=== PATIENT | female | born 1970 | race Caucasian/White ===

== ENCOUNTER 2017-11-15 18:56 | Emergency (ER) | payer BC ==
[~2017-11-15] VITALS: Ht 175.3 cm; Wt 82.6 kg
[~2017-11-15 18:56] MED LIST: ANTIVERT25 MG PO; BENTYL 20 MG TA20 M1 PO; BUTALB-APAP-CA1 EACH PO; CARAFATE 1 GM TA1 G1 PO; CIPROFLOXACIN500 M1 PO; CLEOCIN HCL150 MG PO; CLONAZEPAM; DARVOCET-N 1001 EAC1 PO; DIFLUCAN150 MG PO; DIPHENHIST50 MG PO; LEVOTHYROXIN0.125 M1 PO; LEXAPRO 10 MG T10 M2; LEXAPRO20 MG PO; MACROBID 100 M100 M1 PO; NEURONTIN600 MG PO; NEXIUM; NEXIUM40 MG PO; OMEPRAZOLE20 M2 PO; PEPCID20 MG PO; PREDNISONE 10 M10 MG PO; PROTONIX40 M2; PYRIDIUM200 MG PO; ROCALTROL0.5 MCG PO; TUMS PO; URICALM; VICODIN 5-5001 EACH PO; VITAMIN D 5050000 I1; VITAMIN D1000 UNI1 PO; XANAX 0.5 MG0.5 MG PO; ZOFRAN ODT4 MG PO; ZOLOFT25 MG PO; ZPAK PO
[2017-11-15 19:18] LABS: ABSOLUTE BASOPHILS 0.1 thou/uL (0.0-0.2); ABSOLUTE EOSINOPHILS 0.1 thou/uL (0.0-0.7); ABSOLUTE LYMPHOCYTES 1.4 thou/uL (0.8-5.3); ABSOLUTE MONOCYTES 0.5 thou/uL (0.0-1.2); ABSOLUTE NEUTROPHILS 3.8 thou/uL (1.6-8.1); BASOPHILS 0.9 %; HEMATOCRIT 39.7 % (37.0-47.0); HEMOGLOBIN 13.1 gm/dL (12.0-15.0); LYMPHOCYTES 24.6 %; MCH 28.3 pg (26.0-34.0); MCHC 32.9 g/dL (28.0-37.0); MONOCYTES 8.1 %; MPV 7.8 fl. (7.2-11.1); NUCLEATED RBCS 0 /100WBC; PLATELET COUNT* 325 thou/uL (150-400); POLYS 64.4 %; RBC 4.62 mil/uL (4.20-5.00); RDW-CV 15.5 % (10.5-14.5); WBC 5.9 thou/uL (4.0-11.0)
[2017-11-15 19:46] LABS: ANION GAP 4 mmol/L (7-16); BUN 11 mg/dL (7-18); CALCIUM 8.1 mg/dL (8.5-10.1); CHLORIDE 104 mmol/L (98-107); CO2 30 mmol/L (21-32); CREATININE 0.8 mg/dL (0.6-1.3); GLUCOSE 93 mg/dL (70-99); POTASSIUM 3.8 mmol/L (3.5-5.1); SODIUM 138 mmol/L (136-145)
[2017-11-15] MEDS ORDERED: ZOFRAN ODT4 MG PO (19:46)
[2017-11-15] MEDS ORDERED: CARAFATE 1 GM TA1 G1 PO (19:46)
[2017-11-15 19:57] LABS: ALBUMIN 3.3 g/dL (3.4-5.0); ALKALINE PHOSPHATASE 107 U/L (46-116); LIPASE 139 U/L (73-393); NT-PRO BRAIN NAT PEPTIDE 30 pg/mL (<300); SGOT 11 U/L (15-37); SGPT 17 U/L (30-65); TOTAL BILIRUBIN 0.1 mg/dL (<0.1-1.0); TOTAL PROTEIN 7.7 g/dL (6.4-8.2); TROPONIN-I LEVEL <0.06 ng/mL (<0.06)
[2017-11-15 20:50] VITALS: BP 113/65
--- NOTE | 2017-11-16 10:50 | EKG ---
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 : 1970 Requested By: Juan Adam Order Number: [id number] MD: Robbin Romero Measurements Intervals [place]essel Rate: 84 P: -6 NC: 153 QRS: 60 QRSD: 87 T: 48 QT: 350 QTc: 414 Interpretive Statements Sinus rhythm Baseline wander in lead(s) I,II,III,aVR,aVF Compared to ECG 06/16/2016 19:03:36 No significant changes Electronically Signed On 11-16-2017 10:50:08 CDT by Robbin Romero [email or web address] <ELECTRONICALLY SIGNED> By: Robbin Romero MD, [facility] 11/16/17 1050 190 00 Robbin Romero MD, [facility] /EPI
== END 2017-11-15 20:50 | disposition home or self-care (01) ==
LOC: M.ERS 18:56
PROVIDERS: Emergency Medicine Emergency Medical Services
DX: R10.13 Epigastric pain (principal); R07.9 Chest pain, unspecified; K21.9 Gastro-esophageal reflux disease without esophagitis; E89.0 Postprocedural hypothyroidism; G43.909 Migraine, unspecified, not intractable, without status migrainosus; F17.210 Nicotine dependence, cigarettes, uncomplicated; Z88.0 Allergy status to penicillin; Z88.2 Allergy status to sulfonamides

== ENCOUNTER 2018-03-23 19:24 | Emergency (ER) | payer OTHER ==
[~2018-03-23] VITALS: Ht 175.3 cm; Wt 64.9 kg
[2018-03-23 20:03] LABS: INFLUENZA A ANTIGEN None Detected (None Detect); INFLUENZA B ANTIGEN None Detected (None Detect)
[2018-03-23] MEDS ORDERED: PREDNISONE50 MG PO (21:08)
[2018-03-23 21:14] VITALS: BP 124/78
== END 2018-03-23 21:14 | disposition home or self-care (01) ==
LOC: M.ERS 19:24
PROVIDERS: Emergency Medicine
DX: J40 Bronchitis, not specified as acute or chronic (principal); K21.9 Gastro-esophageal reflux disease without esophagitis; G35 Multiple sclerosis; E89.0 Postprocedural hypothyroidism; G43.909 Migraine, unspecified, not intractable, without status migrainosus; F17.210 Nicotine dependence, cigarettes, uncomplicated; Z88.0 Allergy status to penicillin; Z88.2 Allergy status to sulfonamides; Z85.850 Personal history of malignant neoplasm of thyroid

== ENCOUNTER → 2020-04-05 | Outpatient (CLI) | payer MEDICARE, OTHER ==
[~2020-04-05] MED LIST changes: +PREDNISONE50 MG PO
== END ==
LOC: M.RAD 11:58
PROVIDERS: ATTEND Nurse Practitioner Family
DX: Z12.31 Encounter for screening mammogram for malignant neoplasm of breast (principal)

== ENCOUNTER → 2020-07-28 | Outpatient (CLI) | payer OTHER | LOC: M.CT 11:57 | PROVIDERS: ATTEND Nurse Practitioner Family | DX: R31.0 Gross hematuria (principal); R91.8 Other nonspecific abnormal finding of lung field ==

== ENCOUNTER 2020-08-05 13:19 | Observation (INO) | payer OTHER ==
[~2020-08-05] VITALS: Ht 175.3 cm; Wt 85.7 kg
[~2020-08-05 13:19] MED LIST changes: -LEVOTHYROXIN0.125 M1 PO; +SYNTHROID112 MC1 PO
[2020-08-05 13:43] LABS: ABSOLUTE BASOPHILS 0.1 thou/uL (0.0-0.2); ABSOLUTE EOSINOPHILS 0.1 thou/uL (0.0-0.7); ABSOLUTE LYMPHOCYTES 1.7 thou/uL (0.8-5.3); ABSOLUTE MONOCYTES 0.6 thou/uL (0.0-1.2); BASOPHILS 1.3 %; EOSINOPHILS 2.3 %; HEMATOCRIT 39.9 % (37.0-47.0); HEMOGLOBIN 13.3 gm/dL (12.0-15.0); LYMPHOCYTES 25.7 %; MCH 29.9 pg (26.0-34.0); MCHC 33.3 g/dL (28.0-37.0); MCV 89.7 fL (80.0-100.0); MONOCYTES 9.3 %; MPV 7.8 fl. (7.2-11.1); NUCLEATED RBCS 0 /100WBC; PLATELET COUNT* 305 thou/uL (150-400); POLYS 61.4 %; RBC 4.45 mil/uL (4.20-5.00); RDW-CV 13.9 % (10.5-14.5); WBC 6.5 thou/uL (4.0-11.0)
[2020-08-05 13:55] LABS: CALCIUM 8.6 mg/dL (8.5-10.1); CREATININE 0.8 mg/dL (0.6-1.3)
[2020-08-05 13:56] LABS: APTT 26.8 Seconds (25.0-31.3); INR 0.9; PROTIME 9.8 Seconds (9.20-11.50)
[2020-08-05] MEDS ORDERED: PEPCID AC20 MG PO (13:57)
[2020-08-05 14:04] LABS: ALBUMIN 3.4 g/dL (3.4-5.0); MAGNESIUM 2.1 mg/dL (1.8-2.4); TOTAL BILIRUBIN 0.2 mg/dL (<0.1-1.0); TOTAL PROTEIN 7.5 g/dL (6.4-8.2)
[2020-08-05 18:00] VITALS: BP 119/78
[2020-08-05 18:26] VITALS: BP 124/71
[2020-08-05 20:02] VITALS: BP 134/85
[2020-08-05 23:59] VITALS: BP 110/68
[2020-08-06 04:02] VITALS: BP 103/59
[2020-08-06 09:22] VITALS: BP 115/64
--- NOTE | 2020-08-06 09:50 | EKG ---
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 : 1970 Requested By: Juan Adam Order Number: [id number] MD: Robbin Romero Measurements Intervals [place] Rate: 102 P: 60 SD: 158 QRS: 60 QRSD: 87 T: 49 QT: 320 QTc: 417 Interpretive Statements Sinus tachycardia Minimal ST depression, anterolateral leads Baseline wander in lead(s) V1,V4,V5,V6 Compared to ECG 11/15/2017 19:01:01 ST (T wave) deviation now present Sinus rhythm no longer present Electronically Signed On 08-06-2020 9:49:46 CDT by Robbin Romero [email or web address] <ELECTRONICALLY SIGNED> By: Robbin Romero MD, [facility] 08/06/20 0949 1326 1326 Robbin Romero MD, [facility] /EPI
--- NOTE | 2020-08-06 12:29 | 2DMMODE ---
[place] [address] 2 D/M-MODE ECHOCARDIOGRAM Name: EDITH GOMEZ Room: [address] Marcela#: [id number] Admission: 08/05/20 Attend Phys: Zuleyka Jean Baptiste, Discharge: Date of : 70 Date of Service: 08/06/20 1229 Report #: [id number] THIS REPORT FOR: cc: Stephanie Wang Tami FNP Blick, David R. MD [facility] ~ APPROVED REPORT Study performed: 08/06/2020 10:07:30 EXAM: Comprehensive 2D, Doppler, and color-flow Echocardiogram Patient Location: In-Patient Room #: 218 Status: routine BSA: 2.02 HR: 77 bpm BP: 115/64 mmHg Rhythm: NSR Other Information Study Quality: Excellent Indications Chest Pain 2D Dimensions IVSd: 9.84 (7-11mm) LVOT Diam: 20.97 (18-24mm) LVDd: 43.46 mm PWd: 7.41 (7-11mm) Ascending Ao: 32.66 (22-36mm) LVDs: 26.36 (25-40mm) Aortic Root: 31.16 mm Volumes Left Atrial Volume (Systole) LA ESV Index: 27.60 mL/m2 Aortic Valve AoV Peak Alok.: 1.24 m/s AO Peak Gr.: 6.14 mmHg LVOT Max P.02 mmHg AO Mean Gr.: 3.10 mmHg LVOT Mean P.81 mmHg LVOT Max V: 1.00 m/s AO V2 VTI: 22.84 cm LVOT Mean V: 0.61 m/s PRIETO (VTI): 2.87 cm2 LVOT V1 VTI: 19.01 [place] [address] 2 D/M-MODE ECHOCARDIOGRAM Name: EDITH GOMEZ Room: [address]#: [id number] Admission: 08/05/20 Attend Phys: Zuleyka Jean Baptiste, Discharge: Date of : 70 Date of Service: 08/06/20 1229 Report #: [id number] Mitral Valve E/A Ratio: 1.07 MV Decel. Time: 188.55 ms MV E Max Alok.: 0.69 m/s MV PHT: 54.68 ms MVA (PHT): 4.02 cm2 TDI E/Lateral E': 4.93 E/Medial E': 5.31 Medial E' Alok.: 0.13 m/s Lateral E' Alok.: 0.14 m/s Pulmonary Valve PV Peak Alok.: 1.01 m/s PV Peak Gr.: 4.12 mmHg Tricuspid Valve RAP Estimate: 5.00 mmHg TR Peak Gr.: 20.41 mmHg RVSP: 25.00 mmHg PA Pressure: 25.00 mmHg Left Ventricle The left ventricle is normal size. There is normal LV segmental wall motion. There is normal left ventricular wall thickness. Left ventricular systolic function is normal. The left ventricular ejection fraction is within the normal range. LVEF is 55-60%. The left ventricular diastolic function is normal. Right Ventricle The right ventricle is normal size. The right ventricular systolic function is normal. Atria The left atrium size is normal. The right atrium size is normal. Aortic Valve The aortic valve is normal in structure. Trace aortic regurgitation. There is no aortic valvular stenosis. Mitral Valve The mitral valve is normal in structure. Mild mitral regurgitation. No evidence of mitral valve stenosis. Tricuspid Valve The tricuspid valve is normal in structure. Trace tricuspid regurgitation. [place] [address] 2 D/M-MODE ECHOCARDIOGRAM Name: EDITH GOMEZ Room: [address]#: [id number] Admission: 08/05/20 Attend Phys: Zuleyka Jean Baptiste, Discharge: Date of : 70 Date of Service: 08/06/20 1229 Report #: [id number] Pulmonic Valve The pulmonary valve is normal in structure. There is no pulmonic valvular regurgitation. Great Vessels The aortic root is normal in size. IVC is normal in size and collapses >50% with inspiration. Pericardium There is no pericardial effusion. <Conclusion> LVEF is 55-60%. Mild mitral regurgitation. <ELECTRONICALLY SIGNED> By: Robbin Romero MD, FACC 08/06/20 1229 1229 1229 Robbin Romero MD, FACC /INF
[2020-08-06 20:10] VITALS: BP 134/70
[2020-08-07 00:13] VITALS: BP 104/57
[2020-08-07 04:52] VITALS: BP 113/61
[2020-08-07 08:00] VITALS: BP 118/64
[2020-08-07] MEDS ORDERED: CARAFATE 11 GM/10 M1 PO (08:34)
[2020-08-07] MEDS ORDERED: PROTONIX40 M2 PO (08:34)
[2020-08-07 11:15] VITALS: BP 118/64
== END 2020-08-07 11:45 | disposition home or self-care (01) ==
LOC: M.ERS 13:19 → M.TBA-ER 16:07 → M.2W 16:07
PROVIDERS: Emergency Medicine Emergency Medical Services; ADMIT Internal Medicine; ATTEND Internal Medicine
DX: R07.89 Other chest pain (principal); K21.9 Gastro-esophageal reflux disease without esophagitis; Z20.822 Contact with and (suspected) exposure to COVID-19; G43.909 Migraine, unspecified, not intractable, without status migrainosus; R79.89 Other specified abnormal findings of blood chemistry; R60.1 Generalized edema; F17.210 Nicotine dependence, cigarettes, uncomplicated; Z88.5 Allergy status to narcotic agent; Z88.0 Allergy status to penicillin; Z88.2 Allergy status to sulfonamides; Z85.850 Personal history of malignant neoplasm of thyroid